=== PATIENT | female | born 1990 | race Caucasian/White ===

== ENCOUNTER 2022-01-07 07:26 | Day surgery (SDC) | payer MEDICAID ==
[~2022-01-07] VITALS: Ht 157.5 cm; Wt 89.0 kg
[2022-01-07] MEDS ORDERED: PREN-135 PO (07:55)
[2022-01-07 08:42] LABS: CLARITY URINE CLEAR (CLEAR); COLOR URINE YELLOW (YELLOW); KETONES URINE TRACE (NEGATIVE); LEUKOCYTE ESTERASE URINE NEGATIVE (NEGATIVE); NITRITE URINE NEGATIVE (NEGATIVE); OCCULT BLOOD URINE 3+ (NEGATIVE); PROTEIN URINE TRACE (NEGATIVE); SPECIFIC GRAVITY URINE 1.025 (1.005-1.030)
[2022-01-07 09:00] LABS: CHLORIDE 108 mEq/L (98-107)
[2022-01-07 09:04] LABS: BASOPHILS % 0.7 % (0.0-2.0); EOSINOPHILS % 1.9 % (0.0-5.0); HEMATOCRIT. 39.9 % (36.0-48.0); HEMOGLOBIN. 13.6 g/dL (12.0-16.0); LYMPHOCYTES % 35.4 % (20.0-50.0); MEAN CORPUSCULAR HEMOGLOBIN 29.4 pg (28.0-32.0); MEAN CORPUSCULAR VOLUME 86.6 fL (81.0-99.0); MEAN PLATELET VOLUME 8.5 fl (7.4-10.4); MONOCYTES % 5.3 % (2.0-8.0); NEUTROPHILS % 56.7 % (40.0-76.0); PLATELET 258 x1000/uL (130-400); RED BLOOD CELL COUNT 4.61 mill/uL (4.2-5.4)
[2022-01-07 09:23] LABS: B-HCG QUANTITATIVE 1077 mIU/mL (<3)
[2022-01-07 11:07] LABS: PARTIAL THROMBOPLASTIN TIME 32.2 sec (23.4-31.0)
[2022-01-07] MEDS ORDERED: PROPOFOL 200MG/20ML VIAL IV ONE (13:42)
[2022-01-07] MEDS ORDERED: FENTANYL CITRATE/PF 50MCG/ML 2ML VIAL ONE (13:42)
[2022-01-07] MEDS ORDERED: MIDAZOLAM HCL 2 MG/2 ML VIAL ONE (13:42)
[2022-01-07] MEDS ORDERED: METHYLERGONOVINE MALEATE 0.2 MG/ML ONE (14:02)
[2022-01-07] MEDS ORDERED: ACETAMINOPHEN 325MG TABLET PO PRN ×2 (14:15)
[2022-01-07] MEDS ORDERED: METH PO (14:15)
[2022-01-07] MEDS ORDERED: MISOPROSTOL 200MCG TABLET PO SCH (14:15)
[2022-01-07] MEDS ORDERED: KETOROLAC 60MG/2ML VIAL IM SCH (14:15)
[2022-01-07] MEDS ORDERED: ONDANSETRON HCL 4MG/2ML INJ IV PRN ×2 (14:15→16:00)
[2022-01-07] MEDS ORDERED: IBUP-2029 MT (14:15)
[2022-01-07] MEDS ORDERED: KETOROLAC 30MG/ML VIAL ONE (14:22)
[2022-01-07] MEDS ORDERED: DEXT 5%/0.45% NACL KCL 20MEQ/L 1,000 ML IV SCH (15:00)
[2022-01-07 16:12] VITALS: BP 98/60
== END 2022-01-07 17:10 | disposition home or self-care (01) ==
LOC: ER 07:26 → OR 13:49 → CANBEDREQ 20:27
PROVIDERS: ATTEND Specialist
DX: O03.4 Incomplete spontaneous abortion without complication (principal); Z79.899 Other long term (current) drug therapy; Z98.890 Other specified postprocedural states; Z20.822 Contact with and (suspected) exposure to COVID-19; Z82.49 Family history of ischemic heart disease and other diseases of the circulatory system; Z83.3 Family history of diabetes mellitus
CPT/HCPCS: 36415; 59812; 76801; 76817; 80053; 81003; 84702; 85025; 85610; 85730; 86850; 86900; 86901; 87426; 99285; C9803; J1885; J2210; J2250; J2704; J3010